=== PATIENT | female | born 1980 | race Caucasian/White ===

== ENCOUNTER 2021-04-06 23:59 | Observation (INO) | payer BC ==
[2021-04-07 00:29] VITALS: BMI 28.6
[2021-04-07] MEDS ORDERED: methylPREDNISolone Sod Succ/PF 125 MG/2 ML VIAL IVP SCH (01:03)
[2021-04-07] MEDS ORDERED: Acetaminophen 650 MG Suppository PR PRN (01:04)
[2021-04-07] MEDS ORDERED: Ondansetron ODT 4 MG TAB PO PRN (01:04)
[2021-04-07] MEDS ORDERED: Ondansetron PF 4 MG/2 ML Vial IVP PRN (01:04)
[2021-04-07] MEDS ORDERED: Acetaminophen 325 MG TAB PO PRN (01:04)
[2021-04-07] MEDS ORDERED: Ketorolac Tromethamine 30 MG/ML VIAL IVP PRN (01:07)
[2021-04-07] MEDS ORDERED: SODIUM CHLORIDE 0.9% IVPB SCH (01:30)
[2021-04-07] MEDS ORDERED: METHYLPREDNISOLONE SOD SUCC IVPB SCH (01:30)
[2021-04-07] MEDS: diphenhydrAMINE 25 MG CAP PO PRN ×3 (01:49→16:59)
[2021-04-07] MEDS ORDERED: Lorazepam 2 MG/ML VIAL SLOW IVP PRN (02:45)
[2021-04-07] MEDS ORDERED: Fioricet 325/50/40 mg Tablet PO PRN (03:22)
[2021-04-07 05:07] LABS: #Lymphocytes 0.9 thou/uL (1.20-3.40); #Neutrophils 9.2 thou/uL (1.40-6.50); %Lymphocytes 8.5 % (21.0-51.0); %Monocytes 0.3 % (0.0-10.0); %Neutrophils 91.1 % (42.0-75.0); Hemoglobin 13.2 g/dL (12.0-16.0); Mean Corpuscular HGB CONC 32.9 g/dL (32.0-36.0); Mean Corpuscular Hemoglobin 31.3 pg (27.0-31.0); Mean Corpuscular Volume 95.1 fL (78.0-98.0); Mean Platelet Volume 8.5 fL (7.4-10.4); Platelet Count 222 thou/uL (130-400); RBC Distribution Width 11.4 % (11.5-14.5); Red Blood Cell (RBC) Count 4.23 mill/uL (4.20-5.40); White Blood Cell (WBC) Count 10.1 thou/uL (4.8-10.8)
[2021-04-07 05:28] LABS: Anion Gap 13 mmol/L (10-20); BUN (Urea Nitrogen) 11 mg/dL (7.0-18.7); Calc. Creatinine Clearance 110 mL/min (70-130); Carbon Dioxide 20 mmol/L (22-29); Chloride 105 mmol/L (98-107); Glucose 333 mg/dL (70-105); Potassium 4.3 mmol/L (3.5-5.1); Sodium 134 mmol/L (136-145)
[2021-04-07] MEDS: Prochlorperazine Maleate 5 MG TAB PO PRN ×2 (09:53→16:58)
[2021-04-07] MEDS: Fioricet 325/50/40 mg Tablet PO PRN ×2 (09:53→16:58)
[2021-04-07] MEDS ORDERED: Magnevist 469MG/ML 20 ML VIAL ONE (12:11)
[2021-04-07 15:42] VITALS: BP 121/65; TEMP 98.6
[2021-04-07 17:57] LABS: SARS-CoV-2 PCR by NAA Not Detected (NotDetected)
[2021-04-08] MEDS ORDERED: methylPREDNISolone Sod Succ/PF 125 MG/2 ML VIAL IVP SCH (01:00)
[2021-04-08] MEDS ORDERED: methylPREDNISolone Sod Succ 1 GM in Sodium Chloride 0.9% 250 ML 250 ML IVPB SCH (02:00)
== END 2021-04-07 17:55 | disposition home or self-care (01) ==
LOC: NEURO 04-07 00:21 → INTOOBSV 04-07 00:21
PROVIDERS: ADMIT Student in an Organized Health Care Education/Training Program; ATTEND Internal Medicine
DX: R53.1 Weakness (principal); R20.2 Paresthesia of skin; R51.9 Headache, unspecified; G35 Multiple sclerosis; F17.200 Nicotine dependence, unspecified, uncomplicated; D72.829 Elevated white blood cell count, unspecified; Z53.20 Procedure and treatment not carried out because of patient's decision for unspecified reasons; Z20.822 Contact with and (suspected) exposure to COVID-19
CPT/HCPCS: 36415; 70553; 80048; 85025; A9579; J1885; J2060; J2405; J2930; J7050; Q0164; U0003; U0005